=== PATIENT | female | born 1995 | race Two or more races ===

== ENCOUNTER → 2017-07-05 11:47 | Outpatient (CLI) | payer MEDICAID, SELFPAY ==
[2017-07-05 12:12] LABS: Basophils # 0.1 K/mm3 (0-0.2); Basophils % 0.4 % (0.1-2.0); Eosinophils # 0.8 K/mm3 (0.0-0.4); Eosinophils % 6.5 % (0.1-12.0); Hemoglobin 12.9 g/dL (12.2-16.2); Lymphocytes # 2.2 K/mm3 (0.7-4.5); Mean Corpuscular HGB Conc 34.9 g/dL (31.8-35.4); Mean Corpuscular Hemoglobin 33.4 pg (27.0-31.2); Mean Corpuscular Volume 95.9 fl (81-99); Mean Platelet Volume 7.9 fl (7.4-10.4); Monocytes # 0.5 K/mm3 (0.1-1.0); Monocytes % 3.8 % (1.7-9.3); Neutrophils # 8.9 K/mm3 (1.8-7.8); Neutrophils % 71.3 % (37.0-80.0); Platelet Count 243 K/mm3 (142-424); Red Blood Count 3.85 M/mm3 (4.20-5.40); Red Cell Distribution Width 14.3 % (11.5-17.5); White Blood Count 12.4 K/mm3 (4.8-10.8)
[2017-07-06 07:15] LABS: HIV Screen 4th Generation wRfx Non Reactive (Non Reactive)
[2017-07-06 10:38] LABS: Hepatitis B Surface Antigen Negative (Negative); Hepatitis C Antibody <0.1 s/co ratio (0.0-0.9); Rapid Plasma Reagin Ab Titer Non Reactive (NonRea<1:1)
== END ==
PROVIDERS: PCP Nurse Practitioner Obstetrics & Gynecology; Visit Provider Nurse Practitioner Obstetrics & Gynecology
DX: Z34.90 Encounter for supervision of normal pregnancy, unspecified, unspecified trimester (principal)
CPT/HCPCS: 36415; 85025; 86592; 86703; 86762; 86850; 87340; 87380; G0432

== ENCOUNTER → 2017-07-16 15:10 | Outpatient (CLI) | payer MEDICAID, SELFPAY ==
--- NOTE | 2017-07-16 15:16 | US_ITS ---
US OB /maternal detail INDICATION: ITS.REASON: DATES. TECHNIQUE: ultrasound transabdominal scanning/ MW COMPARISON: No previous relevant studies FINDINGS Single viable intrauterine gestation. Cephalic position. The cervix appears satisfactory. Long, closed and measuring 4.42 centimeter in length. Complete survey performed and was unremarkable on the submitted images as in PACS.No discrete anomalies identified on survey imaging by technologist Active fetus. Three-vessel cord with satisfactory umbilical cord insertion. . Survey of brain & ventricles. Face and neck survey unremarkable. Diaphragm & views chest unremarkable. abdomen: Both kidneys noted & unremarkable. Stomach noted & satisfactory. spine: Survey of the spine satisfactory with no anomalies identified nor imaged Both arms and legs noted. Amniotic fluid.-Adequate. Maternal adnexa -no significant findings. measurements:. Average ultrasound age 18 weeks 1 day. Gestational age 18 weeks 4 days. BPD = 3.95 cm equaling 18 weeks 1 day OFD = I.3 6 cm equaling 19 weeks 0 days HC = 14.79 cm equaling 18 weeks 0 days AC = 12.4 cm equaling 18 weeks 1 day FL = 2.58 cm equaling 17 weeks 6 days Heart rate = 160 BPM. Cerebellum = 1.69 cm equaling 17 weeks 6 days humerus = 2.6 cm equaling 18 weeks 1 day IMPRESSION: Single viable intrauterine gestation in cephalic position currently. 18 weeks 1 dayaverage ultrasound age with today's measurements Posterior placenta. Active fetus. No discrete abnormalities on the ultrasound survey.
== END ==
PROVIDERS: PCP Nurse Practitioner Obstetrics & Gynecology; Visit Provider Nurse Practitioner Obstetrics & Gynecology
DX: O26.842 Uterine size-date discrepancy, second trimester (principal)
CPT/HCPCS: 76811

== ENCOUNTER → 2017-10-19 07:14 | Outpatient (CLI) | payer OTHER, SELFPAY ==
[2017-10-19 07:40] LABS: Glucose,Fasting 90 mg/dL (60-105)
[2017-10-19 09:24] LABS: Glucose 1 Hour 220 mg/dL (74-106)
[2017-10-19 10:32] LABS: Glucose 2 Hour 149 mg/dL (74-106)
[2017-10-19 11:40] LABS: Glucose 3 Hour 141 mg/dL (74-106)
== END ==
PROVIDERS: PCP Nurse Practitioner Obstetrics & Gynecology; Visit Provider Nurse Practitioner Obstetrics & Gynecology
DX: Z34.90 Encounter for supervision of normal pregnancy, unspecified, unspecified trimester (principal)
CPT/HCPCS: 36415; 82951

== ENCOUNTER 2017-11-08 20:27 | Outpatient (CLI) | payer OTHER, SELFPAY ==
[2017-11-08 21:11] VITALS: BMI 25.1
[2017-11-08 21:45] LABS: Microscopic, Urine URINE MICROSCOPIC (MICROSCOPIC)
[2017-11-08 21:47] LABS: Appearance,Urine CLEAR (Clear); Bilirubin,Urine Negative (Negative); Blood, Urine Negative (Negative); Color,Urine YELLOW (Yellow); Glucose,Urine (UA) Negative (Negative); Ketones,Urine Negative (Negative); Leukocyte Esterase,Urine Negative (Negative); Nitrate,Urine Negative (Negative); PH,Urine 6.5 (5.0-8.5); Protein,Urine Negative (Negative); Urobilinogen,Urine 0.2 EU/dl (0.2)
[2017-11-08 21:55] LABS: Amphetamine/Metha Screen,Urine Negative ng/mL (<1000); Barbiturates Screen,Urine Negative ng/mL (<200); Benzodiazepines Screen,Urine Negative ng/mL (<200); Cannabinoid Screen,Urine Negative ng/mL (<50); Cocaine Screen,Urine Negative ng/mL (<300); Methadone Screen,Urine Negative ng/mL (<300); Opiate Screen,Urine Negative ng/mL (<300); Phencyclidine Screen,Urine Negative ng/mL (<25)
[2017-11-08 21:57] LABS: Bacteria,Urine Trace /lpf; WBC,Urine Occasional #/hpf (0-3)
[2017-11-08 22:14] VITALS: BP 116/74; PULSE 92; RESP 17; TEMP 36.8; O2SAT 99; BMI 25.1
== END 2017-11-08 23:08 | disposition home or self-care (01) ==
LOC: OBOUT 20:29 → OB 20:30
PROVIDERS: Referring Provider Nurse Practitioner Obstetrics & Gynecology; Visit Provider Obstetrics & Gynecology
DX: O26.893 Other specified pregnancy related conditions, third trimester (principal); Z3A.35 35 weeks gestation of pregnancy; R10.30 Lower abdominal pain, unspecified; M54.5 Low back pain
CPT/HCPCS: 59025; 80305; 81001; 96360

== ENCOUNTER → 2017-11-17 19:09 | Outpatient (REF) | payer SELFPAY | LOC: LAB 19:09 | PROVIDERS: Visit Provider Nurse Practitioner Obstetrics & Gynecology | DX: Z34.90 Encounter for supervision of normal pregnancy, unspecified, unspecified trimester (principal) | CPT/HCPCS: 86403 ==

== ENCOUNTER → 2017-11-23 09:03 | Outpatient (CLI) | payer OTHER, SELFPAY ==
--- NOTE | 2017-11-23 09:07 | US_ITS ---
US OB BIOPHYSICAL PROFILE INDICATION: Large for gestational age ITS.REASON: DATES-Pt farther along so COMPLETE WAS DONE ORDERING PHYSICIAN: Oscar Phoenix MD PATIENT AGE: 22 years TECHNIQUE: ultrasound transabdominal scanning. COMPARISON: Ultrasound of 07/16/2017. FINDINGS: Single viable intrauterine gestation. Cephalic position. Placenta: Posterior and fundal placenta grade 2. There is normal amount fluid. The cervix appears satisfactory. Closed and measuring 2.3 m in length. Complete survey performed and was unremarkable on the submitted images as in PACS. No discrete anomalies identified on survey imaging by technologist. Active fetus. Three-vessel cord with satisfactory umbilical cord insertion. 4- chamber heart noted. There is curious thickening of the soft tissues of the scalp in the occipital region measuring up to 0.7 cm in width. There also appears to be mild diffuse skin thickening in the abdomen. . .Amniotic Fluid: Adequate. The umbilical artery peak systolic velocity is 57.9 cm/s. The end-diastolic velocity is 21.0 cm/s. The RI measures 0.64 and the S/D ratio is 2.8. Measurements: Average ultrasound age 37 weeks and 5 days. Gestational Age 37 weeks 1 day. Estimated due date by ultrasound age 812/09/2017. Estimated weight 7 lbs. 11 oz. +/- 18 ounces BPD = 9.22 cm equaling 37 weeks 4 days OFD = 11.18 cm equaling 36 weeks 6 days HC = 2.197 m equaling 36 weeks 3 days AC = 35.91 cm equaling 39 weeks 6 days FL = 7.12 cm equaling 36 weeks 4 days Heart Rate = 158 bpm The biophysical profile was performed with a score 8 out of 8 IMPRESSION: Cephalic fetus estimated age 37 weeks 5 days, the suspected skin thickening of the scalp and abdomen can be seen in RH incompatibility and also with history of maternal diabetes and Hydrops Fetalis. There is no evidence of ascites.
== END ==
PROVIDERS: PCP Nurse Practitioner Obstetrics & Gynecology; Visit Provider Nurse Practitioner Obstetrics & Gynecology
DX: O36.63X0 Maternal care for excessive fetal growth, third trimester, not applicable or unspecified (principal); Z3A.37 37 weeks gestation of pregnancy
CPT/HCPCS: 76811; 76819

== ENCOUNTER → 2017-11-30 11:11 | Outpatient (CLI) | payer SELFPAY ==
[2017-11-30 11:32] LABS: Basophils % 0.4 % (0.1-2.0); Eosinophils # 0.5 K/mm3 (0.0-0.4); Eosinophils % 6.1 % (0.1-12.0); Hematocrit 33.7 % (37.0-47.0); Hemoglobin 10.6 g/dL (12.2-16.2); Lymphocytes # 1.6 K/mm3 (0.7-4.5); Mean Corpuscular HGB Conc 31.6 g/dL (31.8-35.4); Mean Corpuscular Hemoglobin 26.8 pg (27.0-31.2); Mean Corpuscular Volume 84.9 fl (81-99); Mean Platelet Volume 9.8 fl (7.4-10.4); Monocytes # 0.5 K/mm3 (0.1-1.0); Monocytes % 5.5 % (1.7-9.3); Neutrophils # 5.5 K/mm3 (1.8-7.8); Neutrophils % 67.9 % (37.0-80.0); Platelet Count 256 K/mm3 (142-424); Red Blood Count 3.96 M/mm3 (4.20-5.40); Red Cell Distribution Width 16.5 % (11.5-17.5)
[2017-11-30 11:53] LABS: Alanine Aminotransferase 54 U/L (12-78); Albumin/Globulin Ratio 0.5 (1.1-1.8); Alkaline Phosphatase 420 U/L (46-116); Anion Gap 17.1 mEq/L (5-15); Aspartate Amino Transferase 30 U/L (15-37); Blood Urea Nitrogen 6 mg/dL (7-18); Calcium 8.5 mg/dL (8.5-10.1); Carbon Dioxide 18 mmol/L (21.0-32.0); Chloride 105 mmol/L (98-107); Creatinine,Serum 0.55 mg/dL (0.55-1.02); Estimated Glomerular Filt Rate 136 ml/min (>60); GFR (African American) 164 ML/MIN (>60); Globulin 4.1 gm/dl (1.3-3.2); Glucose 153 mg/dL (74-106); Potassium 4.1 mmoL/L (3.5-5.1); Sodium 136 mmol/L (136-145); Total Protein,Serum 6.1 gm/dL (6.4-8.2)
== END ==
PROVIDERS: PCP Nurse Practitioner Obstetrics & Gynecology; Visit Provider Nurse Practitioner Obstetrics & Gynecology
DX: Z34.90 Encounter for supervision of normal pregnancy, unspecified, unspecified trimester (principal)
CPT/HCPCS: 36415; 80053; 85025

== ENCOUNTER 2017-12-04 02:46 | Inpatient (IN) ==
[2017-12-04 03:21] VITALS: BP 126/89
[2017-12-04 04:27] LABS: Basophils % 0.4 % (0.1-2.0); Eosinophils # 0.4 K/mm3 (0.0-0.4); Eosinophils % 4.4 % (0.1-12.0); Hemoglobin 10.7 g/dL (12.2-16.2); Lymphocytes # 1.9 K/mm3 (0.7-4.5); Lymphocytes % 20.1 K/mm3 (10-50); Mean Corpuscular HGB Conc 31.3 g/dL (31.8-35.4); Mean Corpuscular Hemoglobin 26.8 pg (27.0-31.2); Mean Corpuscular Volume 85.6 fl (81-99); Mean Platelet Volume 10.1 fl (7.4-10.4); Monocytes # 0.5 K/mm3 (0.1-1.0); Monocytes % 5.4 % (1.7-9.3); Neutrophils # 6.5 K/mm3 (1.8-7.8); Neutrophils % 69.8 % (37.0-80.0); Platelet Count 255 K/mm3 (142-424); Red Blood Count 3.97 M/mm3 (4.20-5.40); Red Cell Distribution Width 17.5 % (11.5-17.5); White Blood Count 9.3 K/mm3 (4.8-10.8)
--- NOTE | 2017-12-04 13:52 | History & Physical Report ---
OB - H&P: HPI Antepartum - History of Present Illness Chief complaint: contractions, LOF - History of Present care: good care Ultrasounds: normal mid trimester US Obstetrical complications: none [facility] History I have reviewed the patient's past medical history: Yes Medical History: Denies:: Diabetes Mellitus Type 1 Other Surgeries: No: Amputation: No Fractures: No - *Social History Smoking Status: Never smoker Alcohol Intake: never Substance Use Type: denies use *Family Hx:: No significant family history : 2 Para: 1 Review of Systems - Review of Systems Review of systems:: pertinent systems reviewed and negative unless documented below - Constitutional Denies fever(s) - Eyes Denies blurry vision - *Cardiovascular Denies chest pain - *Respiratory Denies shortness of breath - *Gastrointestinal Denies abdominal pain - *Genitourinary Denies abnormal vaginal bleeding, Denies vaginal discharge Comments: + contractions - *Neurologic Denies tingling/numbness/burning sensations, Denies dizziness - Psychiatric Denies anxiety, Denies depression - Hematologic/Lymphatic Denies easy bleeding, Denies easy bruising Meds Home Medications Medication Instructions Recorded Confirmed Type 1 tab PO HS 07/05/17 12/04/17 History vitamin,calcium,mhriqcnn-bqms-oxanj acid tablet Ferrous Sulfate 325 mg PO DAILY 12/04/17 12/04/17 History Allergies Allergy/AdvReac Type Severity Reaction Status Date / Time No Known Allergies Allergy Verified 12/04/17 02:57 OB - H&P: Exam - Physical Exam Vital signs: Temp Pulse Resp BP Pulse Ox 98.3 F 80 16 126/89 100 12/04/17 03:15 12/04/17 03:15 12/04/17 03:15 12/04/17 03:15 12/04/17 03:15 - Constitutional no acute distress - Routine HEENT Exam ENT: Present: mucous membranes moist - Routine Respiratory Exam Present: CTA bilaterally. Absent: accessory muscle use, respiratory distress - Routine Cardiovascular Exam Present: RRR. Absent: tachycardia - Routine Abdominal Exam Present: soft. Absent: tenderness, distended, rebound - Routine Exam Comments: cervix 2cm - Routine Extremities Exam Absent: edema - Routine Neurological Exam Present: alert, oriented X3 - Routine Psychiatric Exam Present: normal affect. Absent: depressed, anxious OB - Results - Labs Labs: Short CBC 12/04/17 Range/Units 04:10 WBC 9.3 (4.8-10.8) K/mm3 Hgb 10.7 L (12.2-16.2) g/dL Hct 34.0 L (37.0-47.0) % Plt Count 255 (142-424) K/mm3 OB - A/P Antepartum (1) with 38 completed weeks gestation Current visit: Yes Status: Acute (2) Active labor at term Current visit: Yes Status: Acute (3) Large for gestational age fetus affecting mother, antepartum, third trimester, single gestation Current visit: No Status: Acute (4) Language barrier affecting health care Problem details: Divehi speaking only; FOB translates Current visit: No Status: Chronic (5) Anemia affecting in third trimester Current visit: Yes Status: Acute - Additional Plan Additional Information:: Admit to Labor and Delivery Active labor at term with SROM functioning as hydraulic lift operator Epidural at patient request Anticipate
--- NOTE | 2017-12-04 14:05 | Procedure Note ---
- Delivery Note Delivery Date:: 12/04/17 Delivery Time:: 14:01 Anesthesia Type: None Was labor medically induced?: No Infant delivered prior to 39 weeks?: Yes Justification for early elective delivery:: Active Labor Infant Gender: Female at 1 minute: 7 at 5 minutes: 9 Delivery Procedure:: Spontaneous vaginal delivery of vigorous female over intact perineum. No shoulder dystocia or nuchal cord noted at delivery. Infant to nursing staff for assessment; delee and bulb suctioned after delivery with thin meconium stained amniotic fluid. Apgars 7 & 9. Placenta spontaneous and intact. Second degree perineal laceration repaired with 2-0 vicryl in layers. EBL 300cc. All counts correct. Mom/baby stable to recovery. Laceration:: vaginal Placental Delivery Description: Spontaneous
[2017-12-05 06:50] LABS: Hematocrit 24.3 % (37.0-47.0); Hemoglobin 7.7 g/dL (12.2-16.2)
--- NOTE | 2017-12-05 12:18 | Progress Note ---
Internal Medicine - PN: Subj *Date: 12/05/17 *Time: 12:15 Interval history: PPD #1 No complaints Hgb dropped from 10.7 to 7.7 Denies chest pain, shortness of breath, dizziness Exam Vital signs and Labs for Last 24 Hours: Temp Pulse Resp BP Pulse Ox 98.3 F 80 16 126/89 100 12/04/17 03:15 12/04/17 03:15 12/04/17 03:15 12/04/17 03:15 12/04/17 03:15 Laboratory Results - last 24 hr 12/05/17 06:35: Hgb 7.7 L*, Hct 24.3 L I & O for Last 24 hours: Intake & Output 12/03/17 12/04/17 12/05/17 12/06/17 11:59 11:59 11:59 11:59 Weight 137 lb - Constitutional no acute distress - *Routine Respiratory Exam Absent: respiratory distress - *Routine Cardiovascular Exam Absent: tachycardia - *Routine Abdominal Exam Present: soft. Absent: tenderness, distended - *Routine Extremities Exam Absent: edema - *Routine Skin Exam Absent: rash - Routine Psychiatric Exam Absent: depressed, anxious Assessment and Plan (1) with 38 completed weeks gestation Current visit: Yes Status: Acute Category: Medical Code(s): Z3A.38 - 38 weeks gestation of (2) Active labor at term Current visit: Yes Status: Acute Category: Medical (3) Large for gestational age fetus affecting mother, antepartum, third trimester, single gestation Current visit: No Status: Acute Category: Medical Code(s): O36.63X0 - Maternal care for excessive growth, third trimester, not applicable or unspecified (4) Language barrier affecting health care Problem details: Icelandic speaking only; FOB translates Current visit: No Status: Chronic Category: Social Hx Code(s): Z78.9 - Other specified health status (5) Anemia affecting in third trimester Current visit: Yes Status: Acute Category: Medical Code(s): O99.013 - Anemia complicating , third trimester - Assessment and plan all Dx Assessment and Plan for all problems:: Routine care Repeat H/H in am Anticipate discharge tomorrow
[2017-12-06 06:51] LABS: Hemoglobin 7.6 g/dL (12.2-16.2)
[2017-12-06 06:56] LABS: Hematocrit 23.4 % (37.0-47.0)
--- NOTE | 2017-12-06 12:54 | Discharge Summary ---
DS: Providers Date of admission: 12/04/17 03:49 Attending physician on admission: Renuka Juan Attending physician on discharge: Renuka Juan Anticipated date of discharge: 12/06/17 DS: Diagnosis - Discharge Diagnosis (1) with 38 completed weeks gestation Status: Acute (2) Active labor at term Status: Acute (3) Large for gestational age fetus affecting mother, antepartum, third trimester, single gestation Status: Acute (4) Language barrier affecting health care Status: Chronic Problem details: Tajik speaking only; FOB translates (5) Anemia affecting in third trimester Status: Acute DS: Medications - Discharge Medications Prescriptions: New Ibuprofen [Motrin 400mg tablet] 400 mg PO Q4HP PRN tablet PRN Reason: MILD-MODERATE PAIN Continue vitamin,calcium,prjiszox-krmq-lcmtf acid tablet 1 tab PO HS Ferrous Sulfate 325 mg PO DAILY Discontinued hydroxyzine pamoate 25 mg capsule 25 mg PO QID PRN #60 cap PRN Reason: itching OB - DS: Summary Hospital course: Ms. Franco is a 22 year old female who was admitted in active labor. Normal and course. Acute on chronic anemia with Hgb 7.6 at discharge. Discharged on feso4 and motrin OTC, regular diet and limited activity (no heavy lifting, pelvic rest). F/U office 6 weeks. - Peripartum Data Delivery method: spontaneous vaginal delivery - Time Spent with Patient Total time spent providing and/or coordinating discharge services: Less than 30 minutes Exam Vital signs and Labs for Last 24 Hours: Temp Pulse Resp BP Pulse Ox 98.3 F 80 16 126/89 100 12/04/17 03:15 12/04/17 03:15 12/04/17 03:15 12/04/17 03:15 12/04/17 03:15 Laboratory Results - last 24 hr 12/06/17 06:06: Hgb 7.6 L*, Hct 23.4 L* I & O for Last 24 hours: Intake & Output 12/04/17 12/05/17 12/06/17 12/07/17 11:59 11:59 11:59 11:59 Weight 137 lb - Constitutional no acute distress - *Routine Respiratory Exam Absent: respiratory distress - *Routine Cardiovascular Exam Absent: tachycardia - *Routine Abdominal Exam Present: soft. Absent: tenderness, distended, guarding - *Routine Skin Exam Absent: rash - *Routine Neurological Exam Present: alert, oriented X3 - Routine Psychiatric Exam Present: normal affect Results Labs on day of discharge: Labs from last 24 hours 12/06/17 06:06 Hgb 7.6 L* Hct 23.4 L* Discharge Plan - Patient Discharge Instructions ACTIVITY: No heavy lifting DIET: regular diet Patient Instructions: DI for Hemorrhage, Labor and Delivery, Vaginal , DI for Depression, [facility] Post Discharge Instructions - Follow up Plan Disposition: Home, Self-Longterm Medications: Home Medications Medication Instructions Recorded Confirmed Type 1 tab PO HS 07/05/17 12/04/17 History vitamin,calcium,tniqjqez-uujd-rbmjv acid tablet Ferrous Sulfate 325 mg PO DAILY 12/04/17 12/04/17 History Prescriptions/Medication Reconciliation: No Action hydroxyzine pamoate 25 mg capsule 25 mg PO QID PRN #60 cap PRN Reason: itching vitamin,calcium,tkqszsjn-uemu-rkfmz acid tablet 1 tab PO HS Ferrous Sulfate 325 mg PO DAILY
== END 2017-12-06 13:50 | disposition home or self-care (01) ==
LOC: OBOUT 02:46 → OB 02:48
PROVIDERS: ADMIT Obstetrics & Gynecology; ATTEND Obstetrics & Gynecology